=== PATIENT | female | born 1965 | race Caucasian/White ===

== ENCOUNTER 2017-04-18 07:35 | Emergency (ER) | payer OTHER ==
[2017-04-18 07:51] VITALS: O2SAT 100; BMI 26.9
[2017-04-18] MEDS ORDERED: Sodium Chloride 0.9% 1,000 ML IV ONE (07:52)
--- NOTE | 2017-04-18 07:58 | C.PDOC ---
History Of Present Illness 51-year-old female, presents to the emergency department with complaints of LLQ abdominal pain for the past few days that is associated with a fever. Patient denies nausea/vomiting, diarrhea or symptoms. No other complaints at this time. Time Seen by Provider: 04/18/17 07:41 Chief Complaint (Nursing): Abdominal Pain History Per: Patient History/Exam Limitations: no limitations Current Symptoms Are (Timing): Still Present Location Of Pain/Discomfort: LLQ Radiation Of Pain To:: None Quality Of Discomfort: Dull Exacerbating Factors: Other (sex) Alleviating Factors: None Last Bowel Movement: Today Recent travel outside of the [place]: No Abnormal Vaginal Bleeding: No Past Medical History Reviewed: Historical Data, Nursing Documentation, Vital Signs Vital Signs: Last Vital Signs Temp 98 F 04/18/17 10:08 Pulse 66 04/18/17 10:08 Resp 18 04/18/17 10:08 BP 141/88 04/18/17 10:08 Pulse Ox 100 04/18/17 10:09 - Medical History PMH: Asthma, Hypercholesterolemia Surgical History: No Surg Hx Family History: States: No Known Family Hx - Social History Hx Tobacco Use: No Hx Alcohol Use: No Hx Substance Use: No - Immunization History Hx Tetanus Toxoid Vaccination: No Hx Influenza Vaccination: No Hx Pneumococcal Vaccination: No Review Of Systems Except As Marked, All Systems Reviewed And Found Negative. Constitutional: Positive for: Fever Cardiovascular: Negative for: Chest Pain Respiratory: Negative for: Cough, Shortness of Breath Gastrointestinal: Positive for: Abdominal Pain. Negative for: Nausea, Vomiting Genitourinary: Negative for: Vaginal Discharge, Vaginal Bleeding Musculoskeletal: Negative for: Back Pain Physical Exam - Physical Exam Appears: Non-toxic, No Acute Distress Skin: Warm, Dry, No Rash Head: Atraumatic Eye(s): bilateral: Normal Inspection Oral Mucosa: Moist Lips: Normal Appearing Neck: Normal ROM Cardiovascular: Rhythm Regular Respiratory: Normal Breath Sounds, No Accessory Muscle Use Gastrointestinal/Abdominal: Soft, Tenderness (LLQ), No Guarding, No Rebound Extremity: Normal ROM Neurological/Psych: Oriented x3 Gait: Steady ED Course And Treatment - Laboratory Results Result Diagrams: 04/18/17 08:08 04/18/17 08:08 Lab Interpretation: Normal Urine POC: Negative O2 Sat by Pulse Oximetry: 100 - CT Scan/US No standard instances Other Rad Studies (CT/US): Read By Radiologist, Radiology Report Reviewed CT/US Interpretation: FINDINGS: LOWER THORAX: Unremarkable. LIVER: Unremarkable. No gross lesion or ductal dilatation. GALLBLADDER AND BILE DUCTS : Unremarkable. PANCREAS: Unremarkable. No gross lesion or ductal dilatation. SPLEEN: Unremarkable. ADRENALS: Unremarkable. No mass. KIDNEYS AND URETERS: Unremarkable. No hydronephrosis. No solid mass. VASCULATURE: Unremarkable. No aortic aneurysm. BOWEL: Descending/sigmoid diverticulosis. No evidence of diverticulitis. No other abnormal bowel loops are identified. No bowel obstruction. APPENDIX: Unremarkable. Normal appendix. PERITONEUM: No ascites. Incidental fluid density ovoid mass in proximal right inguinal canal, approximately 0.9 x 1.7 cm. Uncertain significance. LYMPH NODES: Unremarkable. No enlarged lymph nodes. BLADDER: Unremarkable. REPRODUCTIVE: Normal uterus. Probable left ovarian cyst, 3.3 cm. Recommend correlation with transvaginal pelvic ultrasound examination. BONES: No acute fracture. OTHER FINDINGS: None. IMPRESSION: Descending/sigmoid colonic diverticulosis. No evidence of diverticulitis. The remainder of the examination is significant for a left ovarian cyst, approximately 3.3 cm. This should be further evaluated with ultrasound examination. Incidental 0.9 x 1.7 cm fluid density ovoid mass in proximal right inguinal canal, uncertain significance. Progress Note: Treated with IVF NSS and toradol. On re-evaluation abdomen soft non-tender Reassessment Condition: Improved Disposition Counseled Patient/Family Regarding: Studies Performed, Diagnosis, Need For Followup, Rx Given - Disposition Referrals: [facility] [Outside] [facility] [place] Orders [facility] [Outside] Anderson Nguyen [Staff Provider] - Disposition: HOME/ ROUTINE Disposition Time: 13:00 Condition: GOOD Additional Instructions: Follow up with [facility] or clinic for further evaluation Prescriptions: Naproxen [Naprosyn] 1 tab PO BID PRN #25 tab PRN Reason: Pain Instructions: Ovarian Cyst (ED) - POA Present On Arrival: None - Clinical Impression Clinical Impression: Abdominal pain, Ovarian cyst - Scribe Statement The provider has reviewed the documentation as recorded by the Williamibfuad Ross All medical record entries made by the Williamibe were at my direction and personally dictated by me. I have reviewed the chart and agree that the record accurately reflects my personal performance of the history, physical exam, medical decision making, and the department course for this patient. I have also personally directed, reviewed, and agree with the discharge instructions and disposition.
[2017-04-18] MEDS ORDERED: Sodium Chloride 0.9% 1,000 ML ONE (08:08)
[2017-04-18 08:13] LABS: BASO % 0.8 % (0.0-2.0); EOS # 0.1 K/uL (0.0-0.7); EOS % 1.6 % (0.0-4.0); HEMATOCRIT 35.4 % (34.0-47.0); LYMPH # 1.2 K/uL (1.0-4.3); LYMPH % 21.1 % (20.0-40.0); MEAN CELL VOLUME 87.8 fL (81.0-99.0); MEAN CORPUSCULAR HEMOGLOBIN 29.1 pg (27.0-31.0); MEAN CORPUSCULAR HGB CONC 33.1 g/dL (33.0-37.0); MEAN PLATELET VOLUME 9.2 fL (7.2-11.7); MONO # 0.5 K/uL (0.0-0.8); MONO % 9.5 % (0.0-10.0); RED CELL DISTRIBUTION WIDTH 13.8 % (11.5-14.5); WHITE BLOOD COUNT 5.8 K/uL (4.8-10.8)
[2017-04-18 08:26] LABS: CHLORIDE 104 mmol/L (98-107); POTASSIUM 3.8 mmol/L (3.6-5.2); SODIUM 137 mmol/L (132-148)
[2017-04-18 08:28] LABS: BILIRUBIN,TOTAL 1.3 mg/dL (0.2-1.3); CARBON DIOXIDE 23 mmol/L (22-30); GFR AFRICAN-AMERICAN > 60
[2017-04-18 08:29] LABS: ALB/GLOB RATIO 1.4 (1.0-2.1); ALKALINE PHOSPHATASE 62 U/L (38-126); ALT/SGPT 18 U/L (9-52); AST/SGOT 18 U/L (14-36); BLOOD UREA NITROGEN 13 mg/dL (7-17); CALCIUM 8.4 mg/dl (8.6-10.4); GLUCOSE,RANDOM 92 mg/dL (65-105); TOTAL PROTEIN 6.6 g/dL (6.3-8.3)
[2017-04-18 08:33] LABS: RBC URINE < 1 /hpf (0-3); URINE BILIRUBIN NEGATIVE (NEGATIVE); URINE BLOOD NEGATIVE (NEGATIVE); URINE COLOR Yellow (YELLOW); URINE GLUCOSE (UA) NORMAL (Normal); URINE KETONE NEGATIVE (NEGATIVE); URINE LEUKOCYTE ESTERASE NEG Leu/uL (Negative); URINE PROTEIN NEGATIVE (NEGATIVE); URINE UROBILINOGEN NORMAL mg/dL (0.2-1.0); WBC URINE < 1 /hpf (0-5)
[2017-04-18] MEDS ORDERED: Alum-Mag Hydrox-Simethicone Susp (30 mL) PO STA (08:39)
[2017-04-18] MEDS ORDERED: Alum-Mag Hydrox-Simethicone Susp (30 mL) ONE (08:43)
--- NOTE | 2017-04-18 09:52 | CT ---
PROCEDURE: CT Abdomen and Pelvis without intravenous contrast HISTORY: Pain COMPARISON: None. TECHNIQUE: Without contrast.. Contrast Dose: 0 Radiation dose: Total exam DLP = 579.70 mGy-cm. This CT exam was performed using one or more of the following dose reduction techniques: Automated exposure control, adjustment of the mA and/or kV according to patient size, and/or use of iterative reconstruction technique. FINDINGS: LOWER THORAX: Unremarkable. LIVER: Unremarkable. No gross lesion or ductal dilatation. GALLBLADDER AND BILE DUCTS: Unremarkable. PANCREAS: Unremarkable. No gross lesion or ductal dilatation. SPLEEN: Unremarkable. ADRENALS: Unremarkable. No mass. KIDNEYS AND URETERS: Unremarkable. No hydronephrosis. No solid mass. VASCULATURE: Unremarkable. No aortic aneurysm. BOWEL: Descending/sigmoid diverticulosis. No evidence of diverticulitis. No other abnormal bowel loops are identified. No bowel obstruction. APPENDIX: Unremarkable. Normal appendix. PERITONEUM: No ascites. Incidental fluid density ovoid mass in proximal right inguinal canal, approximately 0.9 x 1.7 cm. Uncertain significance. LYMPH NODES: Unremarkable. No enlarged lymph nodes. BLADDER: Unremarkable. REPRODUCTIVE: Normal uterus. Probable left ovarian cyst, 3.3 cm. Recommend correlation with transvaginal pelvic ultrasound examination. BONES: No acute fracture. OTHER FINDINGS: None. IMPRESSION: Descending/sigmoid colonic diverticulosis. No evidence of diverticulitis. The remainder of the examination is significant for a left ovarian cyst, approximately 3.3 cm. This should be further evaluated with ultrasound examination. Incidental 0.9 x 1.7 cm fluid density ovoid mass in proximal right inguinal canal, uncertain significance.
[2017-04-18 10:09] VITALS: BP 141/88; PULSE 66; RESP 18; TEMP 98
== END 2017-04-18 10:31 | disposition home or self-care (01) ==
LOC: C.ER 07:35
DX: R10.32 Left lower quadrant pain (principal); N83.202 Unspecified ovarian cyst, left side
CPT/HCPCS: 74176; 80053; 81001; 83690; 84703; 85025; 96361; 96374; 99285; J1885; J7040